=== PATIENT | female | born 1940 | race Two or more races ===

== ENCOUNTER 2024-07-24 10:35 | Emergency (ER) | payer OTHER ==
[~2024-07-24] VITALS: Ht 157.5 cm; Wt 56.2 kg
[2024-07-24] MEDS ORDERED: PROTONIX40 M1 PO (11:02)
[2024-07-24] MEDS ORDERED: CRESTOR40 MG PO (11:02)
[2024-07-24] MEDS ORDERED: NORVASC5 MG PO (11:02)
[2024-07-24] MEDS ORDERED: ARICEPT10 MG PO (11:03)
[2024-07-24] MEDS ORDERED: PEPCID AC20 MG PO (11:03)
[2024-07-24] MEDS ORDERED: PLAVIX75 MG PO (11:03)
[2024-07-24] MEDS ORDERED: TRAMADOL HCL 50 MG TABLET PO ONE (11:15)
[2024-07-24 11:52] LABS: HEMATOCRIT 42.3 % (36.0-45.00); HEMOGLOBIN 14.4 g/dL (12.0-15.00); MEAN CELL VOLUME 95.3 fL (80.00-100.00); MEAN CORPUSCULAR HEMOGLOBIN 32.4 pg (27.00-32.0); PLATELET COUNT 219 K/uL (150-450); RED BLOOD COUNT 4.44 M/uL (4.00-6.00)
[2024-07-24 12:11] LABS: INR 0.96; PARTIAL THROMBOPLASTIN TIME 27.3 SECONDS (22.0-34.0); PROTHROMBIN TIME 10.5 SECONDS (9.0-11.5)
[2024-07-24 12:18] LABS: ALBUMIN 3.5 gm/dL (3.4-5.0); BILIRUBIN TOTAL 0.35 mg/dL (0.3-1.2); CALCIUM 9.5 mg/dL (8.5-10.1); CREATININE SERUM 0.73 mg/dL (0.55-1.02); GFR 76.51; GLOBULINA 3.4 G/DL (2.4-3.5); POTASSIUM 3.94 mEq/L (3.5-5.1); TOTAL PROTEIN 6.9 gm/dL (6.4-8.2)
== END 2024-07-24 14:46 | disposition home or self-care (01) ==
LOC: ER 10:35
PROVIDERS: General Practice
DX: S09.8XXA Other specified injuries of head, initial encounter (principal); W18.39XA Other fall on same level, initial encounter; Y93.89 Activity, other specified; Y92.098 Other place in other non-institutional residence as the place of occurrence of the external cause; Y99.8 Other external cause status; I10 Essential (primary) hypertension
CPT/HCPCS: 36415; 70460; 71045; 72125; 73030; 73060; 73521; 74176; 99284; Q9965

== ENCOUNTER 2024-12-07 13:17 | Emergency (ER) | payer OTHER ==
[~2024-12-07] VITALS: Ht 160 cm; Wt 52.2 kg
[~2024-12-07 13:17] MED LIST: ARICEPT10 MG PO; CRESTOR40 MG PO; NORVASC5 MG PO; PEPCID AC20 MG PO; PLAVIX75 MG PO; PROTONIX40 M1 PO
[2024-12-07] MEDS ORDERED: BARIUM SULFATE 450 ML ORAL.SUSP PO ONE (16:10)
[2024-12-07 16:19] LABS: URINE APPEARANCE Cloudy; URINE BILIRRUBIN Negative (NEGATIVE); URINE BLOOD Negative; URINE COLOR Yellow; URINE GLUCOSE Negative (NEGATIVE); URINE KETONE Trace (NEGATIVE); URINE LEUKOCYTE Trace; URINE NITRATE Negative; URINE PROTEIN Trace (NEGATIVE); URINE UROBILINOGEN 0.2 E.U./dl
[2024-12-07 16:20] LABS: URINE CAST 10.16 uL (0.0-1.40); URINE EPITHELIAL CELLS 12.6 uL (0.0-38.8); URINE RBC 70.1 uL (0.0-20.8); URINE WBC 13.2 uL (0.0-23.2)
[2024-12-07 16:20] LABS: MEAN CELL VOLUME 97.2 fL (80.00-100.00); MEAN CORPUSCULAR HEMOGLOBIN 32.4 pg (27.00-32.0); MEAN CORPUSCULAR HGB CONC 33.4 g/dl (32.0-36.0); PLATELET COUNT 289 K/uL (150-450); RED BLOOD COUNT 4.94 M/uL (4.00-6.00)
[2024-12-07 16:30] LABS: URINE CRYSTALS FEW /HPF
[2024-12-07 16:38] LABS: INR 0.99; PROTHROMBIN TIME 10.8 SECONDS (9.0-11.5)
[2024-12-07 16:43] LABS: ALBUMIN 3.4 gm/dL (3.4-5.0); ALKALINE PHOSPHATASE 88 U/L (50-136); ALT/SGPT 24 U/L (12-78); ANION GAP 6 (10.0-20.0); AST/SGOT 20 U/L (15-37); BILIRUBIN TOTAL 0.31 mg/dL (0.3-1.2); BILIRUBIN,CONJUGATED < 0.10 mg/dL (0.0-0.2); BILIRUBIN,UNCONJUGATED 0.21 mg/dL (0.0-0.6); BLOOD UREA NITROGEN 12 mg/dL (7-18); BUN CREA RATIO 17 (7.0-25.0); CALCIUM 9.9 mg/dL (8.5-10.1); CARBON DIOXIDE 34 mEq/L (21-32); CHLORIDE 105 mmol/L (98-107); CREATININE SERUM 0.72 mg/dL (0.55-1.02); GFR 77.55; GLOBULINA 3.7 G/DL (2.4-3.5); GLUCOSE FASTING 102 mg/dL (65-100); OSMOLALITY SERUM 281 MOSM/KG (275-295); POTASSIUM 3.94 mEq/L (3.5-5.1); SODIUM 141 mmol/L (136-145); TOTAL PROTEIN 7.1 gm/dL (6.4-8.2)
== END 2024-12-07 20:06 | disposition home or self-care (01) ==
LOC: ER 13:17
PROVIDERS: Emergency Medicine
DX: R10.9 Unspecified abdominal pain (principal); R19.7 Diarrhea, unspecified; Z20.822 Contact with and (suspected) exposure to COVID-19; I10 Essential (primary) hypertension
CPT/HCPCS: 36415; 74177; 99284; Q9965